=== PATIENT | female | born 1985 | race Caucasian/White ===

== ENCOUNTER 2019-01-01 10:19 | Emergency (ER) | payer SELFPAY ==
[2019-01-01 10:19] VITALS: BP 136/82; PULSE 75; RESP 16; TEMP 37; O2SAT 97; BMI 32.3
--- NOTE | 2019-01-01 10:38 | RAD_ITS ---
STUDY: X-RAY CHEST REASON FOR EXAM: Female, 33 years old. Productive cough, fever TECHNIQUE: PA and lateral views of the chest. COMPARISON: None. FINDINGS: The lungs are clear and expanded. There is no demonstrated pleural abnormality. Normal size heart. Normal mediastinum and gabriela. Normal visualized pulmonary arteries. Normal visualized aortic arch and descending thoracic aorta. Normal visualized thoracic spine. Normal visualized ribs, clavicles, and shoulders. There is no demonstrated abnormality of the visualized soft tissue structures of the upper abdomen. RAD/Chest PA and Lateral IMPRESSION: Normal x-ray examination of the chest. Electronically Signed: Ambrosio Dunn MD at 11:30 EDT Tel , Service support ,
--- NOTE | 2019-01-01 10:40 | ED.VISSUMM ---
- ER Visit Summary Date of Service: 01/01/19 Chief Complaint: Cough History of Present Illness: The patient is a 33 F who presents with a cough that has been getting worse over the past 5 days. Patient states she is coughing up green sputum. Patient admits to a fever of 102 at home. Patient admits to headache and sinus pressure. Patient admits to some pain in her chest with coughing. Patient admits to nausea and vomiting after coughing. Patient also admits to some rhinorrhea and nasal congestion. Physical Examination: Vital signs are stable. Patient is afebrile. Patient is in no acute distress. Oral mucosa is pink and moist. Neck is supple. Trachea is midline. There is no JVD noted. Tympanic membranes are clear bilaterally. Heart was regular rate and rhythm. Lungs showed scattered rhonchi. Abdomen is soft. Bowel sounds are normal. There is no tenderness. There is no guarding noted. Skin is warm dry. Cranial nerves II through XII are intact. There are no focal motor or sensory deficits noted. Test Results: PA and lateral chest x-ray was obtained. There is no acute cardiopulmonary process. This is interpreted by the radiologist and myself. Emergency Department Course and Treatment: Patient was feeling better on reevaluation. Patient was advised of her results. Patient was instructed to continue Tylenol and ibuprofen as needed for any aches or fevers. Patient was instructed to follow-up with her primary care physician in 5 to 7 days. Patient understood and was agreeable with the plan. All questions were answered. Disposition: Discharge home Impression: Viral upper respiratory infection This note was generated with [facility] dictation software. It may contain incorrect words, spelling, and punctuation that were not noted in review of the chart prior to signing ED Disposition - Plan for ED Patient: Disposition: Home or Assisted Living Diagnosis: Viral upper respiratory infection Instructions: URI, Viral, No Abx (Adult) Referrals: Care Physician,No Primary [Primary Care Provider] - Kareem Nicolas MD [NON-STAFF] - 5-7 Days
[2019-01-01 10:43] VITALS: O2SAT 98
[2019-01-01 12:14] VITALS: BP 110/83; PULSE 61; RESP 16; O2SAT 98
[2019-01-01 12:29] VITALS: BP 110/61; PULSE 61; RESP 16; O2SAT 98
== END 2019-01-01 12:29 | disposition home or self-care (01) ==
PROVIDERS: Emergency Provider Emergency Medicine
DX: J06.9 Acute upper respiratory infection, unspecified (principal); R11.2 Nausea with vomiting, unspecified; R07.9 Chest pain, unspecified; M54.9 Dorsalgia, unspecified; Z72.0 Tobacco use
CPT/HCPCS: 71046; 99282

== ENCOUNTER 2019-01-28 13:21 | Emergency (ER) | payer SELFPAY ==
[2019-01-28 13:22] VITALS: BP 110/66; PULSE 65; RESP 16; TEMP 36.1; O2SAT 96; BMI 29.2
[2019-01-28] MEDS: 0.9% Normal Saline 1,000 ML 1000 ML IV (15:05)
[2019-01-28] MEDS: Metoclopramide 10 MG/2 ML Vial IV (15:06)
[2019-01-28] MEDS: Ketorolac 30 MG/ML Syringe IV (15:06)
[2019-01-28] MEDS: DiphenhydrAMINE 50 MG/ML Syringe 25 MG IV (15:06)
--- NOTE | 2019-01-28 15:42 | ED.DCSUM_ITS ---
- ER Visit Summary Date of Service: 01/28/19 Chief Complaint: [] History of Present Illness: The patient is a 33 F [the emergency department complaint of a headache that started 3 days ago. Patient complains of also nausea and vomiting associated with it as well as photophobia. Patient states that she is started having some diarrhea today and she has had been watery stools. Patient also complaining some pain in her back. She complains of just generally feeling weak. Patient states that she had a fever last night up to 102. She denies urinary symptoms. My sick contacts.] Physical Examination: [HEENT-PERRLA, EOMI. Cranial nerves II through XII grossly intact. TMs clear. Mucous membranes moist. No adenopathy. Cardiovascular-regular rate and rhythm without murmur or ectopy Lungs-clear to auscultation, chest wall stable without crepitus or subcu emphysema Abdomen-normoactive bowel sounds, soft, nontender, no rebound or rigidity, no peritoneal signs. Neuro taex-chxxmk-chvi and heel petit testing within normal limits, negative Romberg, negative for drift, fundi benign. Kernig's negative Brudzinski sign. Extremities-intact ?4, normal range of motion, normal pulses, atraumatic] Test Results: [None indicated] Emergency Department Course and Treatment: [She was given a liter normal same fluid bolus as well as Reglan, Benadryl, and Toradol and she had significant pain relief with that.] Treatment Plan: [Advised to push fluids and use ibuprofen or Tylenol for discomfort. Patient advised to follow-up with ma care physician personnel security specialist for no doc within next 3 to 5 days. Patient advised to return if persistent vomiting and diarrhea and dehydration, or conditions worsen anyway.] Disposition: [Discharged home stable condition.] Impression: [Migrainous cephalgia Viral gastroenteritis] This note was generated with [employer] dictation software. It may contain incorrect words, spelling, and punctuation that were not noted in review of the chart prior to signing ED Disposition - Plan for ED Patient: Referrals: Care Physician,No Primary [Primary Care Provider] -
--- NOTE | 2019-01-28 15:44 | ED.DEP ---
ED Disposition - Plan for ED Patient: Instructions: ED, Migraine (Classical) Referrals: Care Physician,No Primary [Primary Care Provider] - Josefa Gomez DO [STAFF PHYSICIAN] - 3-5 Days
[2019-01-28 15:55] VITALS: BP 109/64; PULSE 78; RESP 14; O2SAT 97
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
== END 2019-01-28 15:57 | disposition home or self-care (01) ==
LOC: ED 14:53
PROVIDERS: Emergency Provider Emergency Medicine
DX: G43.909 Migraine, unspecified, not intractable, without status migrainosus (principal); A08.4 Viral intestinal infection, unspecified; M54.9 Dorsalgia, unspecified; Z72.0 Tobacco use
CPT/HCPCS: 96361; 96374; 96375; 99283; J7030; A4216

== ENCOUNTER 2019-08-17 10:40 | Emergency (ER) | payer OTHER, SELFPAY ==
[2019-08-17 10:41] VITALS: BP 138/91; PULSE 90; RESP 16; TEMP 36.3; O2SAT 98; BMI 30.2
--- NOTE | 2019-08-17 10:51 | ED.VISSUMM ---
- ER Visit Summary Date of Service: 08/17/19 Chief Complaint: Vaginal bleeding History of Present Illness: The patient is a 34 F who presents with vaginal bleeding. Started today worse than yesterday. She started her normal menstrual cycle yesterday but it is heavy today. She has gone through 6 super tampons today. She has passed some blood clots. Denies any chance of as she has had her fallopian tubes removed. She denies any urinary symptoms denies pelvic pain. She took nothing for this at home. Physical Examination: Vital signs reviewed. HEENT exam unremarkable. Heart is regular rate and rhythm without murmurs. Lungs are clear to auscultation. Abdomen is soft and nontender. Genitourinary exam shows some old blood with clotting. There is mild active bleeding coming from the cervix. No tenderness. Extremities reveal no edema. Skin exam normal. Neurologic exam normal. Test Results: CBC normal. hCG negative Emergency Department Course and Treatment: The patient is likely just having heavy menstrual bleeding. I do not see any other abnormalities. Patient will monitor her bleeding at home and follow-up with her MARKETING PLANNING MANAGER Treatment Plan: [] Disposition: Discharge Impression: Dysfunctional uterine bleeding This note was generated with [employer] dictation software. It may contain incorrect words, spelling, and punctuation that were not noted in review of the chart prior to signing ED Disposition - Plan for ED Patient: Disposition: Home or Assisted Living Instructions: ED Bleed Irregular Vaginal Referrals: Care Physician,No Primary [Primary Care Provider] - James Decker MD [STAFF PHYSICIAN] -
[2019-08-17 11:13] LABS: Absolute Lymphocyte Count 2.61 X10^3/uL (0.83-4.51); Absolute Neutrophil Count 8.8 X10^3/uL (2.0-7.7); Basophil# 0.08 X10^3/uL; Basophil% 0.7 % (0-1); Eosinophil# 0.18 X10^3/uL; Eosinophils% 1.5 % (0-5); Hematocrit 41.8 % (37-47); Hemoglobin 13.4 g/dL (12.0-15.0); Lymphocyte # 2.61 X10^3/ul (4.0); Lymphocyte % 21.3 % (19-41); Mean Corp Hgb Conc 32.1 g/dL (32-36); Mean Corpuscular Hgb 30.2 pg (27.0-32.0); Mean Corpuscular Volume 94.4 fL (81-99); Mean Platelet Vol. 10.7 fl (6.2-12.0); Monocyte# 0.55 X10^3/uL; Monocyte% 4.5 % (0-10); NRBC Flagged by Analyzer 0 % (0-5); Neutrophil # 8.78 X10^3/uL (2.7-7.7); Neutrophil % 71.7 % (47-70); Platelet Count 240 K/mm3 (150-450); RBC Distribution Width CV 13.6 % (11.6-14.6); RBC Distribution Width SD 47.3 fl (35.1-43.9); Red Blood Count 4.43 M/mm3 (4.2-5.4); White Blood Count 12.2 K/mm3 (4.4-11.0)
[2019-08-17 11:21] LABS: Internal QC Validated? YES +Cl - CLEAR BKGD; Pregnancy, Serum, hCG Quali. NEGATIVE Negative
== END 2019-08-17 11:52 | disposition home or self-care (01) ==
PROVIDERS: Emergency Provider Emergency Medicine
DX: N93.8 Other specified abnormal uterine and vaginal bleeding (principal); Z72.0 Tobacco use
CPT/HCPCS: 84703; 85025; 99282

== ENCOUNTER 2021-04-27 20:00 | Emergency (ER) | payer OTHER, SELFPAY ==
[2021-04-27 20:01] VITALS: BP 126/105; PULSE 119; RESP 18; TEMP 36.2; O2SAT 95; BMI 29.7
[2021-04-27 22:38] LABS: Anion Gap 5 (5-15); BUN 11 mg/dL (7-18); BUN/Creat Ratio 10.4 RATIO (10-20); Chloride 107 mmol/L (98-107); Creatinine, Serum 1.06 mg/dL (0.55-1.02); EST Glomerular Filtration Rate 63 mL/min (>60); Est Glom Filt Rate - Afr Amer 76 mL/min (>60); Estimated Creatinine Clearance 56.43 ml/min; Glucose 108 mg/dL (74-106); Potassium 5.5 mmol/L (3.5-5.1); Sodium Level 137 mmol/L (136-145)
[2021-04-27 22:41] VITALS: BP 126/105; PULSE 119; RESP 18; TEMP 36.2; O2SAT 95
--- NOTE | 2021-04-27 22:42 | RAD_ITS ---
INDICATION: infection EXAMINATION/TECHNIQUE: X-RAY - XR Chest 1 View COMPARISON: 01/01/2019. FINDINGS: Left basilar opacities. The cardiomediastinal silhouette is unremarkable. Small left pleural effusion. No pneumothorax. No acute osseous abnormalities. RAD/Chest 1 View (Portable) IMPRESSION: Left basilar round consolidation concerning for infection with small left pleural effusion. Cannot rule out empyema. Electronically Signed: Ronald Gray MD at 23:28 EST Tel , Service support ,
[2021-04-27 22:47] LABS: Absolute Lymphocyte Count 2.58 X10^3/uL (0.83-4.51); Absolute Neutrophil Count 4.9 X10^3/uL (2.0-7.7); Basophil# 0.06 X10^3/uL; Basophil% 0.7 % (0-1); Eosinophil# 0.14 X10^3/uL; Eosinophils% 1.7 % (0-5); Hematocrit 32.9 % (37-47); Hemoglobin 10.4 g/dL (12.0-15.0); Lymphocyte # 2.58 X10^3/ul (0.83-4.51); Lymphocyte % 30.5 % (19-41); Mean Corp Hgb Conc 31.6 g/dL (32-36); Mean Corpuscular Hgb 27.7 pg (27.0-32.0); Mean Corpuscular Volume 87.5 fL (81-99); Mean Platelet Vol. 9.6 fl (6.2-12.0); Monocyte# 0.74 X10^3/uL; Monocyte% 8.7 % (0-10); NRBC Flagged by Analyzer 0 % (0-5); Neutrophil # 4.92 X10^3/uL (2.7-7.7); Neutrophil % 58.2 % (47-70); Platelet Count 357 K/mm3 (150-450); RBC Distribution Width CV 15.4 % (11.6-14.6); RBC Distribution Width SD 49.1 fl (35.1-43.9); Red Blood Count 3.76 M/mm3 (4.2-5.4); White Blood Count 8.5 K/mm3 (4.4-11.0)
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
[2021-04-27] MEDS: Doxycycline 100 MG CAPSULE PO (23:32)
== END 2021-04-27 23:38 | disposition home or self-care (01) ==
PROVIDERS: Emergency Provider Emergency Medicine
DX: S31.813A Puncture wound without foreign body of right buttock, initial encounter (principal); W34.00XA Accidental discharge from unspecified firearms or gun, initial encounter; Y93.9 Activity, unspecified; Y92.9 Unspecified place or not applicable; Y99.9 Unspecified external cause status; I10 Essential (primary) hypertension; F17.210 Nicotine dependence, cigarettes, uncomplicated
CPT/HCPCS: 71045; 80048; 85025; 87040; 99285; A4216

== ENCOUNTER 2021-05-25 12:51 | Outpatient (RCR) | payer MEDICAID, SELFPAY | END 2021-06-12 23:59 | LOC: WC 12:51 | PROVIDERS: Visit Provider Nurse Practitioner Family | DX: Z09 Encounter for follow-up examination after completed treatment for conditions other than malignant neoplasm (principal) ==

== ENCOUNTER 2021-05-26 14:52 | Outpatient (CLI) | payer MEDICAID, SELFPAY ==
--- NOTE | 2021-05-26 14:55 | RAD_ITS ---
STUDY: X-RAY - THORACIC SPINE REASON FOR EXAM: Female, 36 years old. Mid back pain TECHNIQUE: 2 view(s) of the thoracic spine were obtained. COMPARISON: None. FINDINGS: Normal kyphosis of the thoracic spine. There is no substantial scoliosis. Normal thoracic vertebrae and endplates. Normal disc space heights. The soft tissue structures are unremarkable. RAD/Thoracic Spine Min 4 Views IMPRESSION: Normal x-ray examination of the thoracic spine. Electronically Signed: Brett Nelson MD at 16:47 EST , Service support ,
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
== END 2021-05-26 23:59 | disposition short-term general hospital (02) ==
LOC: MTRAD 14:55
PROVIDERS: PCP Nurse Practitioner Family; Referring Provider Nurse Practitioner Family; Visit Provider Nurse Practitioner Family
DX: S22.49XA Multiple fractures of ribs, unspecified side, initial encounter for closed fracture (principal); W34.00XA Accidental discharge from unspecified firearms or gun, initial encounter; M54.50 Low back pain, unspecified; G89.29 Other chronic pain; R07.89 Other chest pain
CPT/HCPCS: 71046; 72074; 72100

== ENCOUNTER 2021-07-21 15:19 | Outpatient (CLI) | payer MEDICAID, SELFPAY ==
[2021-07-21 17:06] LABS: Anion Gap 6 (5-15); BUN 22 mg/dL (7-18); BUN/Creat Ratio 19.5 RATIO (10-20); Calcium,Total 9.2 mg/dL (8.5-10.1); Chloride 107 mmol/L (98-107); Creatinine, Serum 1.13 mg/dL (0.55-1.02); EST Glomerular Filtration Rate 59 mL/min (>60); Est Glom Filt Rate - Afr Amer 71 mL/min (>60); Glucose 106 mg/dL (74-106); Potassium 3.8 mmol/L (3.5-5.1); Sodium Level 138 mmol/L (136-145)
== END 2021-07-21 23:59 | disposition home or self-care (01) ==
LOC: BIMLAB 15:21
PROVIDERS: PCP Nurse Practitioner Family; Referring Provider Nurse Practitioner Family; Visit Provider Nurse Practitioner Family
DX: I10 Essential (primary) hypertension (principal); M54.9 Dorsalgia, unspecified; G89.29 Other chronic pain
CPT/HCPCS: 36415; 80048

== ENCOUNTER 2021-09-07 13:30 | Outpatient (RCR) | payer MEDICAID, SELFPAY ==
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
== END 2021-09-07 15:18 | disposition home or self-care (01) ==
LOC: PT 13:30
PROVIDERS: PCP Nurse Practitioner Family; Referring Provider Nurse Practitioner Family; Visit Provider Nurse Practitioner Family
DX: M54.9 Dorsalgia, unspecified (principal); G89.29 Other chronic pain; S22.49XD Multiple fractures of ribs, unspecified side, subsequent encounter for fracture with routine healing; W34.00XD Accidental discharge from unspecified firearms or gun, subsequent encounter
CPT/HCPCS: 97110; 97113; 97162; 97164

== ENCOUNTER 2022-04-08 13:47 | Emergency (ER) | payer SELFPAY ==
[2022-04-08 13:48] VITALS: BP 136/107; PULSE 63; RESP 15; TEMP 36.2; O2SAT 98; BMI 34.9
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
[2022-04-08 14:24] VITALS: PULSE 66; RESP 17; O2SAT 98
== END 2022-04-08 14:26 | disposition home or self-care (01) ==
PROVIDERS: Emergency Provider Emergency Medicine; Visit Provider Emergency Medicine
DX: I10 Essential (primary) hypertension (principal); Z76.0 Encounter for issue of repeat prescription; M54.9 Dorsalgia, unspecified; G89.29 Other chronic pain; F17.200 Nicotine dependence, unspecified, uncomplicated; Z79.899 Other long term (current) drug therapy
CPT/HCPCS: 99282